=== PATIENT | female | born 1980 | race Two or more races ===

== ENCOUNTER 2016-09-08 00:57 | Emergency (ER) | payer MEDICAID ==
[~2016-09-08] VITALS: Ht 162.6 cm; Wt 59.0 kg
[2016-09-08 01:45] VITALS: BP 96/65
[2016-09-08] MEDS ORDERED: ONDANSETRON HCL/PF - ER 4 MG/2 ML VIAL IV ONE (02:00)
[2016-09-08] MEDS ORDERED: HYDROMORPHONE 1 MG/1 ML DISP.SYRIN IV ONE (02:00)
[2016-09-08] MEDS ORDERED: ONDANSETRON HCL/PF 4 MG/2 ML VIAL ONE (02:06)
[2016-09-08] MEDS ORDERED: IV NS 0.9% 50 ML IV ONE (02:06)
[2016-09-08] MEDS ORDERED: IV SET PRIMARY 1 EA INFUS.SET MC ONE (02:06)
[2016-09-08] MEDS ORDERED: HYDROMORPHONE 1 MG/1 ML DISP.SYRIN ONE (02:06)
== END 2016-09-08 03:02 | disposition home or self-care (01) ==
LOC: ER 00:57
DX: G43.909 Migraine, unspecified, not intractable, without status migrainosus (principal); Z98.890 Other specified postprocedural states
CPT/HCPCS: 96374; 96375; 99284; A4216; A4606; J1170; J2405; Z7610